=== PATIENT | female | born 1955 | race Two or more races ===

== ENCOUNTER 2020-12-13 16:40 | Emergency (ER) | payer OTHER ==
[2020-12-13 17:08] VITALS: BP 138/74
[2020-12-13] MEDS ORDERED: KETOROLAC 60 MG/2 ML VIAL IM STA (17:42)
--- NOTE | 2020-12-13 17:49 | ED Physician Documentation ---
History of Present Illness - Stated complaint Stated Complaint: GLF,BACK PX - Chief complaint Chief Complaint: Back Pain - Additonal information Additional information: 65-year-old female presents the emergency department for evaluation of acute right low back pain. She reports that yesterday while at work she slipped on wet concrete falling directly backwards onto her buttock. She did not think much of the incident and had been feeling well after taking ibuprofen and Tylenol and in fact felt well this morning however when she finished her workday today she noticed that she was quite sore and tender especially at the right SI area. She has a normal gait. She did not lose consciousness or strike her head. she is not anticoagulated. No history of spinal instrumentation, no history of cancer, no fevers no bowel bladder incontinence. No saddle anesthesia. PMH: Hyperlipidemia hypertension. Review of Systems Constitutional: denies: Fever, Chills Eyes: reports: Reviewed and negative Ears: reports: Reviewed and negative Nose: reports: Reviewed and negative Throat: reports: Reviewed and negative Cardiac: reports: Reviewed and negative Respiratory: reports: Reviewed and negative GI: reports: Reviewed and negative : reports: Reviewed and negative Skin: reports: Reviewed and negative Musculoskeletal: reports: Back pain Neurologic: reports: Reviewed and negative PD PAST MEDICAL HISTORY - Present Medications Home Medications: Ambulatory Orders Medication Instructions Recorded Confirmed Citalopram [CeleXA] 1 tab DAILY 12/13/20 12/13/20 Ibuprofen [Motrin] 600 mg PO Q6H PRN #30 tab 12/13/20 Lisinopril [Zestril] 20 mg PO 12/13/20 Methocarbamol [Robaxin-750] 750 mg PO BID PRN #20 12/13/20 Simvastatin [Zocor] 1 tab DAILY 12/13/20 12/13/20 - Allergies Allergies/Adverse Reactions: Allergies Allergy/AdvReac Type Severity Reaction Status Date / Time No Known Drug Allergies Allergy Verified 12/13/20 17:08 PD ED PE EXPANDED - General General: Alert, No acute distress, Well developed/nourished, Other (obese) - Neck Neck: Supple w/out meningeal sx, No tenderness. No: Adenopathy - Cardiac Cardiac: Regular Rate, Cap refill < 2 sec - Respiratory Respiratory: Clear to ausultation ivette. No: Distress, Labored - Abdomen Abdomen: Normal Bowel sounds. No: Tender to palpation - Back Back: Soft tissue tenderness. No: Vertebral tenderness, Straight leg raise + R, Straight leg raise + L, CVA TTP right, CVA TTP left (Right lower paraspinous tenderness to palpation without midline spinous process tenderness. There is point tenderness at the right SI joint. Motor strength 5 of 5 bilateral lower extremities. Normal gait. Able to walk on heels and toes. no parathesias) - Extremities Extremities: Normal. No: Deformity, Tenderness - Neuro Neuro: Alert and Oriented X 3, CNII-XII intact, Normal gait. No: Confused, Disoriented - GCS Eye Opening: Spontaneous Motor: Obeys Commands Verbal: Oriented Total: 15 Results - Vitals Vitals: Vital Signs - 24 hr 12/13/20 17:00 Temperature 36.7 C Heart Rate 68 Respiratory 18 Rate Blood Pressure 138/74 H O2 Saturation 99 Oxygen O2 Source Room air - Rads (name of study) lumbar xr Radiology: Final report received (Degenerative changes without visualized fracture. No visualized acute fracture or dislocation.) Hip/pelvis xr Radiology: Prelim report reviewed (Degenerative changes in the hip.) PD MEDICAL DECISION MAKING - ED course Complexity details: reviewed results, re-evaluated patient, considered differential, d/w patient ED course: 65-year-old female presents emergency department with right low back pain after a slip on wet concrete yesterday afternoon. On exam she has mild tenderness in the right low back at the SI point and has an unaltered gait. X-ray imaging does not show show any obvious hip or lumbar fracture though there are certainly degenerative changes within the right hip. She was given 60 mg of Toradol here in the emergency department with marked relief of the pain. We will plan to discharge with a muscle relaxer as well as NSAID. This is an L&I injury. Appropriate paperwork filled out. Emergent return precautions discussed. Departure - Departure Disposition: 01 Home, Self Care Clinical Impression: Fall Qualifiers: Encounter type: initial encounter Qualified Code(s): W19.XXXA - Unspecified fall, initial encounter Contusion of lower back Qualifiers: Encounter type: initial encounter Qualified Code(s): S30.0XXA - Contusion of lower back and pelvis, initial encounter Condition: Stable Instructions: ED Contusion Back Prescriptions: Ibuprofen [Motrin] 600 mg PO Q6H PRN #30 tab PRN Reason: Pain Methocarbamol [Robaxin-750] 750 mg PO BID PRN #20 PRN Reason: Spasms Comments: Shari thank you for your patience waiting today. I am sorry that you had a fall at work. The x-ray of your lumbar spine shows no fractures. The x-ray of your right hip and pelvis does show arthritis. I suspect that after your fall you have had a contusion of the low back and probably a flare of your arthritis. The medication we gave you in the emergency department is Toradol. This is an injectable NSAID medication. Because it brought you so much pain relief I recommend that you take the ibuprofen with food 2-3 times a day. I have also ordered a muscle relaxer methocarbamol that may help with pain. Be cautious using this as it may make you sleepy and too drowsy to drive. Please schedule follow-up with your primary care provider for reevaluation in 7 to 10 days. If not markedly better you may benefit from physical therapy. However I feel that you can return to your normal work duties.
--- NOTE | 2020-12-13 19:03 | XRAY Report ---
PROCEDURE: Lumbar Spine 2 View INDICATIONS: fall TECHNIQUE: 2 views of the lumbar spine were acquired. COMPARISON: None. FINDINGS: Bones: 5 [id number] vertebrae are present. There is rated 1 anterolisthesis of L4 on L5. Moder ate to severe disc space narrowing is present at L4-5, L5-S1. Severe foraminal narrowing is present a t L5-S1. No vertebral body compression fractures. No suspicious bony lesions. Soft tissues: Overlying bowel gas pattern is normal. No suspicious soft tissue calcifications. IMPRESSION: 1. Degenerative changes without visualized fracture. No visualized acute fracture or dislocation. How ever, occult injury cannot be excluded. Recommend short interval imaging follow-up in 7-10 days as cl inically indicated for additional evaluation. 2. The above findings are concordant with preliminary report. Reviewed by: Mara Azar MD on 12/13/2020 6:02 PM [facility] Approved by: Mara Azar MD on 12/13/2020 6:02 PM [facility] Station ID: [id number]
--- NOTE | 2020-12-14 10:53 | XRAY Report ---
PROCEDURE: Hip w/Pelvis 2-3V RT INDICATIONS: Trauma, fall TECHNIQUE: AP pelvis with lateral view(s) of the bilateral hip(s). COMPARISON: None. FINDINGS: Bones: No fractures or dislocations. Pelvic ring appears intact. No suspicious bony lesions. Soft tissues: The visualized bowel gas pattern is normal. No suspicious soft tissue calcifications. IMPRESSION: No acute finding. No significant change from the preliminary report. Reviewed by: Fei Steiner MD on 12/14/2020 10:51 AM [facility] Approved by: Fei Steiner MD on 12/14/2020 10:51 AM [facility] Station ID: [id number]
== END 2020-12-13 19:40 | disposition home or self-care (01) ==
LOC: ED 16:40
DX: S30.0XXA Contusion of lower back and pelvis, initial encounter (principal); W01.0XXA Fall on same level from slipping, tripping and stumbling without subsequent striking against object, initial encounter; Y99.0 Civilian activity done for income or pay; M16.11 Unilateral primary osteoarthritis, right hip; M47.816 Spondylosis without myelopathy or radiculopathy, lumbar region; M48.061 Spinal stenosis, lumbar region without neurogenic claudication; I10 Essential (primary) hypertension; E78.5 Hyperlipidemia, unspecified
CPT/HCPCS: 96372; 99284